=== PATIENT | male | born 1985 | race Caucasian/White ===

== ENCOUNTER 2019-08-22 09:51 | Inpatient (IN) ==
--- NOTE | 2019-08-06 13:05 | PAT Medication Instructions ---
Medication Instructions Date of Service August 06, 2019 Home Medications bupropion HCl [Wellbutrin SR] 100 mg PO BID clonazepam [Klonopin] 1 mg PO TID PRN dicyclomine 10 mg PO TID PRN methylphenidate HCl [Ritalin] 10 mg PO BID ondansetron HCl [Zofran] 4 mg PO DAILY PRN pantoprazole 40 mg PO BID DO NOT take the morning of surgery dicyclomine 10 mg PO TID PRN methylphenidate HCl [Ritalin] 10 mg PO BID Take morning of surgery With a small sip of water, OTHERWISE NOTHING TO EAT OR DRINK AFTER MIDNIGHT: bupropion HCl [Wellbutrin SR] 100 mg PO BID clonazepam [Klonopin] 1 mg PO TID PRN (if needed) ondansetron HCl [Zofran] 4 mg PO DAILY PRN (if needed) pantoprazole 40 mg PO BID Take evening before surgery bupropion HCl [Wellbutrin SR] 100 mg PO BID clonazepam [Klonopin] 1 mg PO TID PRN (if needed) dicyclomine 10 mg PO TID PRN (if needed) methylphenidate HCl [Ritalin] 10 mg PO BID ondansetron HCl [Zofran] 4 mg PO DAILY PRN (if needed) pantoprazole 40 mg PO BID Other Notes If you have any questions please call us at [phone] or [phone] or [phone] or [phone]
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
--- NOTE | 2019-08-12 12:33 | XRay Report ---
XR chest Pre-admission PA/Lat CLINICAL HISTORY: Preoperative evaluation. COMPARISON STUDY: No previous studies for comparison. FINDINGS: Lung volumes are normal. Lungs are clear. There is no pneumothorax or pleural effusion. Car diac size is normal. Mediastinal contours are normal. There is no evidence for pulmonary edema. Left upper quadrant surgical clips are incidentally noted. IMPRESSION: No acute cardiopulmonary findings. ACT 112: Negative or not required by law. Electronically signed by: Shon Uribe M.D. 08/12/2019 12:32 PM
[2019-08-12 12:58] LABS: Hematocrit (blood only) 48.9 % (42-52); Hemoglobin 16.3 g/dL (14.0-18.0); Mean Corpuscular Hgb Conc 33.3 g/dL (32-36); Mean Corpuscular Volume 95.9 fL (80-100); Platelet Count 357 K/uL (130-400); RDW Coefficient of Variation 14.2 % (11.5-14.5); RDW Standard Deviation 49.6 fL (36.4-46.3); White Blood Count 13.72 K/uL (4.8-10.8)
[2019-08-12 12:58] LABS: Appearance Urine Clear (Clear); Bilirubin Urine Negative (Negative); Blood Urine Negative (Negative); Color Urine Yellow; Glucose Urine UA Negative (Negative); Ketones Urine Negative (Negative); Leukocyte Esterase Urine Negative (Negative); Nitrite Urine Negative (Negative); Protein Urine Negative (Negative); Specific Gravity Urine 1.004 (1.000-1.030); Urobilinogen Urine Negative (Negative); pH Urine 6.5 (4.5-7.5)
[2019-08-12 13:08] LABS: Partial Thromboplastin Time 26.7 Seconds (21.0-31.0); Prothrombin Time 9.9 Seconds (9.0-12.0)
[2019-08-12 14:48] LABS: Basophils # (auto) 0.06 K/uL (0-0.2); Basophils % (auto) 0.4 %; Eosinophils % (auto) 2.9 %; Immature Granulocytes # (auto) 0.08 K/uL (0.00-0.02); Immature Granulocytes % (auto) 0.6 %; Lymphocytes # (auto) 5.01 K/uL (1.2-3.4); Lymphocytes % (auto) 36.5 %; Monocytes # (auto) 1.43 K/uL (0.11-0.59); Monocytes % (auto) 10.4 %; Neutrophils # (auto) 6.74 K/uL (1.4-6.5); Neutrophils % (auto) 49.2 %
[2019-08-12 15:48] LABS: BUN Creatinine Ratio 11.3 (10-20); Calcium 9.3 mg/dl (8.5-10.1); Creatinine Clr Calc Pharmacy 116.5 ml/min; Est GFR (Non-African American) 88.8; Potassium 3.7 mmol/L (3.5-5.1)
--- NOTE | 2019-08-13 17:38 | Electrocardiogram Report ---
Test Reason : Blood Pressure : / mmHG Vent. Rate : 062 BPM Atrial Rate : 062 BPM P-R Int : 138 ms QRS Dur : 094 ms QT Int : 390 ms P-R-T Axes : 064 053 055 degrees QTc Int : 395 ms Normal sinus rhythm Normal ECG No previous ECGs available Confirmed by Jose Cheek ([id number]) on 08/13/2019 5:38:26 PM Referred By: Lizandro Ch Confirmed By:Adi Cheek
[~2019-08-22 09:51] MED LIST: ACETAMINOPHEN 500 MG TAB PO SCH; CEFAZOLIN 2000MG 2,000 MG/15 ML SYR IV SCH; CeleBREX 200 MG CAP PO SCH; GABAPENTIN 900 MG DOSE PO SCH; LR 15ML/HR IV SCH
[2019-08-22] MEDS ORDERED: ePHEDrine sulfate 50 MG/ML AMP ONE (12:16)
[2019-08-22] MEDS ORDERED: GLYCOPYRROLATE 0.2 MG/ML VIAL ONE (12:16)
[2019-08-22] MEDS ORDERED: LIDOCAINE HCL 2% 2 ML VIAL/AMP(20MG/ML) INFIL ONE (12:16)
[2019-08-22] MEDS ORDERED: fentaNYL citrate 100 MCG/2 ML VIAL ONE ×3 (12:16→16:18)
[2019-08-22] MEDS ORDERED: ONDANSETRON INJ 2 MG/ML 2 ML VIAL ONE (12:16)
[2019-08-22] MEDS ORDERED: PHENYLEPHRINE HCL 10 MG/ML VIAL ONE (12:16)
[2019-08-22] MEDS ORDERED: SUCCINYLCHOLINE CHLORIDE 20 MG/ML 10 ML VIAL ONE (12:16)
[2019-08-22] MEDS ORDERED: NEOSTIGMINE METHYLSULFATE 1 MG/ML 10ML VIAL ONE (12:16)
[2019-08-22] MEDS ORDERED: PROPOFOL IV EMULSION 10 MG/ML 20 ML VIAL IV ONE (12:16)
[2019-08-22] MEDS ORDERED: DEXAMETHASONE SOD INJ 4 MG/ML VIAL ONE (12:16)
[2019-08-22] MEDS ORDERED: MIDAZOLAM HCL 1 MG/ML 2ML VIAL ONE (12:16)
--- NOTE | 2019-08-22 13:12 | History & Physical Bridge Note ---
Date of Service August 22, 2019 History & Physical Bridge Note I have examined the patient, reviewed the History & Physical and in the interval since the performance of the History & Physical I have noted the following changes of clinical significance: no changes noted
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
[2019-08-22] MEDS ORDERED: BUPIVACAINE/EPINEPHRINE 0.5% MPF 1:200,000 10 ML VIAL ONE (14:13)
[2019-08-22] MEDS ORDERED: BACITRACIN INJ 50,000 UNIT VIAL ONE (14:13)
[2019-08-22] MEDS ORDERED: HYDROmorphone INJ 2 MG/ML SYR/VIAL ONE (15:10)
[2019-08-22] MEDS ORDERED: FLOSEAL HEMOSTATIC MATRIX 10ML TOP ONE (15:20)
--- NOTE | 2019-08-22 15:59 | Operative Report ---
Post Operative Report Pre & Post Diagnosis Operation Date: 08/22/19 11:45 Pre-Op Diagnosis: Spinal stenosis of lumbar region with radiculopathy L4-S1 Post-Op Diagnosis: Spinal stenosis of lumbar region with radiculopathy L4-S1 I identified the patient and participated in the time-out.: Yes Procedure Operation Date: 08/22/19 11:45 Actual Procedures #1 lumbar decompression with bilateral medial facetectomies foraminotomies L4-5, L5-S1 per #2 posterior spinal fusion L4-5, L5-S1. #3 placement posterior instrumentation L4-5 L5-S1. #4 interbody fusion L5-S1. #5 placement titanium cage 12 x 26 mm at L5-S1. #6 placement of locally harvested morselized autograft in the posterior lateral gutters. #7 placement infuse collagen sponge, master graft in the posterior lateral gutters and ostial amp and interbody space. Surgeon Lizandro Ch DO Profiling Machine Setup Operator Samuel Whitney Estimated Blood Loss 100 Findings Consistent with Post-Op Diagnosis Specimens None Indications This is a 34-year-old male that presents above-mentioned diagnosis after failing extensive course of nonoperative care is here for surgical intervention. Description of Procedure Patient was met with identified informed consent obtained. Patient was then taken to the operative suite underwent an patient placed in a prone position on the John table on top of the Ari frame. All bony prominences well-padded eyes inspected to ensure no external pressure placed upon the. This point the lumbar spine was prepped and draped in a normal sterile fashion. Sharp dissection with the assistance of Bovie cautery performed down to and exposing the lamina transverse processes of L4-L5 and sacral ala bilaterally. From a caudal cephalad fashion complete laminectomy of L5 and L4 was performed including medial facetectomies and foraminotomies bilaterally. Pedicle screws were then placed in L4-L5 and S1 levels bilaterally with assistance of fluoroscopy and appropriate size balbina placed. By way of a trans-foramen approach and left the discectomy was performed endplates curetted to subcortical being bone and a 12 x 26 mm titanium cage filled with osteo-amp bone graft tapped in position. The rods were then compressed locked into final position bilaterally. The transverse processes of L for L5 and sacral ala burred to subcortical being bone. Infuse collagen sponge master graft local autograft placed in the posterior lateral gutters. 15 round FAMILIA drain inserted. Incision was then closed with 1 Vicryl in the fascia 2-0 Vicryl subcutaneously and 4 Monocryl for final skin closure. Steri-Strip sterile dressings placed. Patient will continue PACU stable initially please note Samuel record present throughout the entire procedure involved the patient positioning complex portions of the surgery and final skin closure. Lastly spinal cord monitoring was utilized that the procedure no changes noted. I attest to the content of the Intraoperative Record and any orders documented therein. Any exceptions are noted below.
[2019-08-22] MEDS ORDERED: ROCURONIUM BROMIDE 10 MG/ML 5 ML VIAL ONE (16:00)
--- NOTE | 2019-08-22 16:13 | Fluoroscopy Report ---
FL lumbar spine 2-3V CLINICAL HISTORY: 34 years-old Male presenting with L4-S1 DECOMPRESSION AND FUSION. TECHNIQUE: 2 fluoroscopic image(s) recorded as part of an intraoperative procedure. COMPARISON: None. FINDINGS/IMPRESSION: Bilateral transpedicular screw and balbina fixation of L4-S1 with interbody spacer at L5-S1. Laminectomy at L5. Normal anatomic alignment. Please see surgical report for further details. Fluoroscopy dosage (mGy): 23.03. Fluoroscopy time: 22.6 seconds. Number or time of high level fluoroscopy (HLF), digital spot, or digital subtraction images: 0. ACT 112: Negative or not required by law. Electronically signed by: Juan Morrell M.D. 08/22/2019 4:12 PM
[2019-08-22] MEDS ORDERED: ONDANSETRON INJ 2 MG/ML 2 ML VIAL IV PRN ×2 (16:47→17:23)
[2019-08-22] MEDS ORDERED: ATROPINE SULFATE 0.1 MG/ML 10ML SYR IV PRN (16:47)
[2019-08-22] MEDS ORDERED: HYDROmorphone INJ 2 MG/ML SYR/VIAL IV PRN (16:47)
[2019-08-22] MEDS ORDERED: fentaNYL citrate 100 MCG/2 ML VIAL IV PRN (16:47)
[2019-08-22] MEDS ORDERED: ePHEDrine sulfate 50 MG/ML AMP IV PRN (16:47)
--- NOTE | 2019-08-22 16:50 | Anesthesiology Progress Note ---
Date of Service August 22, 2019 Anesthesia Post Procedure Vital Signs Vital Signs: Temp Pulse Pulse Resp BP Pulse Ox 08/22/19 16:40 65 12 142/86 H 95 08/22/19 16:30 70 16 150/87 H 97 08/22/19 16:23 36.3 C L 66 18 142/92 H 97 08/22/19 10:18 36.9 C 78 18 142/79 H 94 Pain Intensity Bilateral Lower Back: Pain Intensity: 6 Transfer of Care Handoff Completed per policy Notes Mental Status: alert / awake / arousable and participated in evaluation Patient Amnestic to Procedure: Yes Nausea / Vomiting: adequately controlled Pain: adequately controlled Airway Patency, RR, SpO2: stable & adequate BP & HR: stable & adequate Hydration State: stable & adequate Anesthetic Complications: no major complications apparent and Pt Satisfied with anesthetic care
[2019-08-22] MEDS ORDERED: PROMETHAZINE HCL 12.5 MG in SODIUM CHLORIDE 0.9% 50 ML IV PRN (17:23)
[2019-08-22] MEDS ORDERED: ACETAMINOPHEN 500 MG TAB PO PRN (17:23)
[2019-08-22] MEDS ORDERED: ALUMINUM/MAGNESIUM SUSP 30 ML UDC PO PRN (17:23)
[2019-08-22] MEDS ORDERED: SOD PHOSPHATE/SOD BIPHOSPHATE ENEMA 132 ML BTL PR PRN (17:23)
[2019-08-22] MEDS ORDERED: ONDANSETRON 4 MG OD TAB PO PRN (17:23)
[2019-08-22] MEDS ORDERED: NON-FORMULARY MEDICATION (Ondansetron Hcl 4 MG) PO PRN (17:23)
[2019-08-22] MEDS ORDERED: bisacodyL 10 MG SUPP PR PRN (17:23)
[2019-08-22] MEDS ORDERED: HYDROmorphone INJ 0.5 MG/0.5 ML SYR IV PRN (17:23)
[2019-08-22] MEDS ORDERED: LORazepam 0.5 MG/1 ML VIAL IV PRN (17:23)
[2019-08-22] MEDS ORDERED: DO NOT ADMINISTER FLU VACCINE PRN (17:23)
[2019-08-22] MEDS ORDERED: METOCLOPRAMIDE HCL INJ 5 MG/ML 2 ML VIAL IV PRN (17:23)
[2019-08-22] MEDS ORDERED: ACETAMINOPHEN 1,000 MG/100 ML VIAL IV PRN (17:23)
[2019-08-22] MEDS ORDERED: MAGNESIUM HYDROXIDE SUSP 30 ML UDC PO PRN (17:23)
[2019-08-22] MEDS ORDERED: DICYCLOMINE HCL 10 MG CAP PO PRN (17:23)
[2019-08-22] MEDS ORDERED: LORazepam 0.5 MG TAB PO PRN (17:23)
[2019-08-22] MEDS ORDERED: FAMOTIDINE 20 MG TAB PO PRN (17:23)
[2019-08-22] MEDS ORDERED: DO NOT ADMINISTER PNEUMOCOCCAL VACCINE PRN (17:23)
[2019-08-22] MEDS ORDERED: NALOXONE HCL 0.4 MG/1 ML VIAL/CARP IV PRN (17:23)
[2019-08-22] MEDS: LACTATED RINGER'S 1,000 ML IV SCH ×2 (17:39→20:06)
[2019-08-22] MEDS: HYDROmorphone INJ 1 MG/ML SYRINGE IV PRN (17:44)
[2019-08-22] MEDS ORDERED: Nursing to Pharmacy Communication ONE (17:53)
[2019-08-22] MEDS: KETOROLAC 30 MG/ML VIAL IV SCH ×2 (18:03→23:58)
[2019-08-22] MEDS: OXYCODONE HCL IR 5 MG TAB (IMMEDIATE RELEASE) PO PRN (20:15)
[2019-08-22] MEDS: clonazePAM 1 MG TAB PO PRN (20:16)
[2019-08-22] MEDS: DOCUSATE SODIUM/SENNA 50/8.6MG TAB PO SCH (20:23)
[2019-08-22] MEDS: PANTOprazole 40 MG TAB PO SCH (20:23)
[2019-08-22] MEDS: METHYLPHENIDATE HCL 10 MG TABLET PO SCH (20:23)
[2019-08-22] MEDS: BuPROPion SR 100 MG TABCR PO SCH (20:23)
[2019-08-22] MEDS: CEFAZOLIN 2000MG 2,000 MG/15 ML SYR IV SCH (21:56)
[2019-08-23] MEDS: HYDROmorphone INJ 1 MG/ML SYRINGE IV PRN ×4 (03:18→21:16)
[2019-08-23] MEDS: CEFAZOLIN 2000MG 2,000 MG/15 ML SYR IV SCH (05:52)
[2019-08-23] MEDS: KETOROLAC 30 MG/ML VIAL IV SCH ×2 (05:52→12:23)
[2019-08-23] MEDS: POLYETHYLENE (MIRALAX) 17 GM PACK PO SCH ×3 (05:52→17:27)
[2019-08-23] MEDS: OXYCODONE HCL IR 5 MG TAB (IMMEDIATE RELEASE) PO PRN ×5 (05:55→18:49)
[2019-08-23 06:29] LABS: Hemoglobin 14.4 g/dL (14.0-18.0); Mean Corpuscular Hgb Conc 33.5 g/dL (32-36); Mean Corpuscular Volume 95.6 fL (80-100); Mean Platelet Volume 10.2 fL (7.4-10.4); Platelet Count 364 K/uL (130-400); RDW Coefficient of Variation 14.3 % (11.5-14.5); RDW Standard Deviation 49.7 fL (36.4-46.3)
[2019-08-23 07:02] LABS: Basophils # (auto) 0.05 K/uL (0-0.2); Basophils % (auto) 0.3 %; Eosinophils # (auto) 0.51 K/uL (0-0.5); Eosinophils % (auto) 3.1 %; Immature Granulocytes # (auto) 0.06 K/uL (0.00-0.02); Immature Granulocytes % (auto) 0.4 %; Lymphocytes # (auto) 5.26 K/uL (1.2-3.4); Lymphocytes % (auto) 32.5 %; Monocytes # (auto) 2.02 K/uL (0.11-0.59); Monocytes % (auto) 12.5 %; Neutrophils % (auto) 51.2 %
[2019-08-23 07:05] LABS: BUN Creatinine Ratio 9.4 (10-20); Calcium 8.6 mg/dl (8.5-10.1); Creatinine Clr Calc Pharmacy 111.9 ml/min; Est GFR (African American) 99.6; Est GFR (Non-African American) 85.9; Potassium 3.9 mmol/L (3.5-5.1)
[2019-08-23] MEDS: clonazePAM 1 MG TAB PO PRN ×2 (07:46→15:47)
[2019-08-23] MEDS: PANTOprazole 40 MG TAB PO SCH ×2 (08:41→20:52)
[2019-08-23] MEDS: METHYLPHENIDATE HCL 10 MG TABLET PO SCH ×2 (08:41→20:52)
[2019-08-23] MEDS: BuPROPion SR 100 MG TABCR PO SCH ×2 (08:42→20:52)
--- NOTE | 2019-08-23 08:59 | Orthopedic Progress Note ---
Date of Service August 23, 2019 Assessment & Plan (1) Spinal stenosis of lumbar region with radiculopathy: At this time initiate physical therapy advance his bowel regimen anticipate discharge home Sunday. Present on Admission?: Yes Subjective Back pain is controlled no leg pain Physical Exam Physical Exam: Patient is good strength testing appears comfortable. Results & Data ([facility]) Vital Signs (Past 12 Hours) Vital Signs Temp Pulse Pulse Resp BP Pulse Ox 08/23/19 07:03 36.4 C L 67 18 111/72 95 08/23/19 03:19 36.9 C 70 16 132/87 95 08/22/19 23:27 37.1 C 77 18 123/72 96
[2019-08-23] MEDS: TRAMADOL HCL 50 MG TABLET PO PRN (15:47)
--- NOTE | 2019-08-23 20:18 | Anesthesiology Progress Note ---
Date of Service August 23, 2019 Anesthesia Post Procedure Vital Signs Vital Signs: Temp Pulse Pulse Pulse Resp BP Pulse Ox 08/23/19 15:07 37.1 C 76 16 123/74 94 08/23/19 14:13 129/78 08/23/19 13:57 96 08/23/19 13:32 88 08/23/19 12:51 37.5 C 77 16 142/80 H 96 08/23/19 12:29 37.5 C 79 16 138/87 96 08/23/19 07:03 36.4 C L 67 18 111/72 95 08/23/19 03:19 36.9 C 70 16 132/87 95 08/22/19 23:27 37.1 C 77 18 123/72 96 Pain Intensity Bilateral Lower Back: Pain Intensity: 6 Notes Mental Status: see notes below Patient Amnestic to Procedure: Yes Nausea / Vomiting: adequately controlled Pain: adequately controlled Airway Patency, RR, SpO2: stable & adequate BP & HR: stable & adequate Hydration State: stable & adequate Anesthetic Complications: no major complications apparent Notes: Patient sleeping comfortably
[2019-08-23] MEDS: DOCUSATE SODIUM/SENNA 50/8.6MG TAB PO SCH (20:52)
[2019-08-24] MEDS: POLYETHYLENE (MIRALAX) 17 GM PACK PO SCH ×4 (00:08→17:42)
[2019-08-24] MEDS: OXYCODONE HCL IR 5 MG TAB (IMMEDIATE RELEASE) PO PRN ×6 (00:09→22:33)
[2019-08-24] MEDS: PANTOprazole 40 MG TAB PO SCH ×2 (08:28→20:52)
[2019-08-24] MEDS: BuPROPion SR 100 MG TABCR PO SCH ×2 (08:28→20:52)
[2019-08-24] MEDS: METHYLPHENIDATE HCL 10 MG TABLET PO SCH ×2 (08:33→20:52)
--- NOTE | 2019-08-24 08:54 | Orthopedic Progress Note ---
Date of Service August 24, 2019 Assessment & Plan (1) Spinal stenosis of lumbar region with radiculopathy: At this point will continue with GI DVT prophylaxis. Patient was encouraged to continue to work with physical therapy to become more independent. We will continue with pain control measures. Her hopes that he can be discharged home tomorrow. Subjective Patient seen bedside postop day #2. He complains of numbness and tingling in both of his legs when he tries to stand and walk. He states his legs feel weak. He states he cannot lay on his back due to pain. He denies any other numbness, tingling, or paresthesias. Physical Exam Physical Exam: On exam the patient was soundly sleeping upon entering the room. He was easily arousable. His abdomen soft nontender his calves are supple nontender strength and sensation both intact his dressing is clean dry and intact. His FAMILIA drains is in place and holding suction. Results & Data ([facility]) Vital Signs (Past 12 Hours) Vital Signs Temp Pulse Resp BP BP Pulse Ox 08/24/19 07:05 37.7 C H 83 18 113/73 95 08/24/19 00:09 37.2 C 89 16 113/66 94
[2019-08-24] MEDS: clonazePAM 1 MG TAB PO PRN ×2 (10:17→20:52)
[2019-08-24] MEDS: TRAMADOL HCL 50 MG TABLET PO PRN (20:51)
[2019-08-24] MEDS: DOCUSATE SODIUM/SENNA 50/8.6MG TAB PO SCH (20:52)
[2019-08-25] MEDS: POLYETHYLENE (MIRALAX) 17 GM PACK PO SCH ×3 (00:13→12:11)
[2019-08-25] MEDS: HYDROmorphone INJ 1 MG/ML SYRINGE IV PRN ×3 (00:16→19:11)
[2019-08-25] MEDS: OXYCODONE HCL IR 5 MG TAB (IMMEDIATE RELEASE) PO PRN ×3 (02:46→15:37)
[2019-08-25] MEDS: PANTOprazole 40 MG TAB PO SCH (08:44)
[2019-08-25] MEDS: BuPROPion SR 100 MG TABCR PO SCH (08:45)
[2019-08-25] MEDS: METHYLPHENIDATE HCL 10 MG TABLET PO SCH (08:50)
[2019-08-25] MEDS: clonazePAM 1 MG TAB PO PRN (08:50)
[2019-08-25] MEDS: TRAMADOL HCL 50 MG TABLET PO PRN (10:15)
--- NOTE | 2019-08-25 16:21 | Discharge Summary ---
Date of Service August 25, 2019 Admission HPI Per Admitting Provider This is a 34-year-old male who presents with chronic persistent back and leg pain. After failing extensive course of nonoperative care he is here for surgical intervention. Principal Diagnosis Lumbar spinal stenosis with neurogenic claudication Discharge Data Allergies Allergy/AdvReac Type Severity Reaction Status Date / Time No Known Allergies Allergy Verified 08/22/19 10:15 Consultations 08/22/19 17:23 Consult Case Management - Discharge Planning Routine Procedures Performed Operation Date: 08/22/19 11:45 Actual Procedures p L4-S1 Decompression and Fusion, Interbody Fusion L5-S1, Bone Morphogenetic Protein with Spinal Cord Monitoring(Not Applicable) - Lizandro Ch DO Ordered Studies 08/22/19 11:45 FL fluoroscopy <1hr Routine FL lumbar spine 2-3V Routine Hospital Course (1) Spinal stenosis of lumbar region with radiculopathy: Patient underwent multilevel lumbar decompression fusion tolerated this well was taken to orthopedic floor postoperatively. Postop day 1 he was up and ambulating progressed to postop day #2 postop day #3 his symptoms improved FAMILIA drain decreased appropriately and subsequently discharged home discharge orders instructions from the chart for further view. Total Time Total Time Spent Total Time Spent (In Minutes): 20 minutes Discharge Plan Discharge Items Patient Disposition: Home - Self-Care Reason For Visit: LUMBAR SPINAL STENOSIS W/NEUROGENIC CLAUDICATION Discharge Diagnosis: Lumbar spinal stenosis with radiculopathy Activity: As commented below Non-emergency contact: Primary Care Provider Call non-emergency contact if: you have any medication questions Follow-up/Referrals: Alessia Duvall DO [Primary Care Provider] - Diet: Regular Addtl Attending Provider Instructions: ACTIVITY RECOMMENDATIONS: SELF CARE INSTRUCTIONS AFTER THORACIC/LUMBAR FUSIONS 1. You may walk to your tolerance. It is good exercise for your legs and back. Expect some back and intermittent leg aches and pains. 2. You may perform "counter-top" level activities (make a sandwich, martha with a project, etc.). 3. No bending or lifting of more than 10 pounds or back twisting of any nature (roll like a log when turning in bed). 4. You may ride in a car for 20-30 minutes at a time. No driving until after your first visit with your doctor. 5. Frequent changes of position and restricting sitting to 30 minutes at a time will help limit the amount of back spasms and stiffness you may experience. 6. You may discontinue the use of ambulatory aids (cane, crutches, etc.) once your strength and confidence allow. 7. You may interlocking installer the shower and let water strike your incision when you arrive home at least once daily. Do not take a tub bath, sit in a hot tub or go into a swimming pool until after your first recheck in the office. SPECIAL CARE INSTRUCTIONS: VERY IMPORTANT TO READ AND REVIEW A. Your surgical incision has been closed with a cosmetic suture under the skin that will dissolve in about 6 weeks. In 14 days, you can use a pair of clean scissors and cut the suture that is left outside of the skin at the ends of your incision. 1. The small skin tapes can be removed 7 days after surgery if they have not fallen off by that point. 2. You may keep the wound open to air as much as possible to promote healing after post-op day number 5 unless told otherwise by your doctor. 3. If you think the wound looks like it is becoming infected (redness or worsening drainage) and/or you are experiencing fever, chill or worsening back pain and muscle spasms, contact the office so that we may evaluate you as soon as possible. B. Complications are uncommon, but please contact us if you have any signs or symptoms of: 1. wound infection (fever higher than 102.5 degrees F, redness, separation of wound, drainage, or increasing pain from the incision) 2. blood clots in legs (pain, swelling, redness and warmth in legs) 3. urinary tract infection (fever higher than 102.5 degrees F, burning upon urination or increased frequency of urination) 4. nerve problems (inability to walk on your toes or heels, numbness, loss of bowel or bladder control) 5. any other symptoms that concern you C. Please call the office at if you have any concerns or questions about your operation or recovery. D. No smoking! Smoking drastically decreases the chance of a solid fusion. E. Do not take any anti-inflammatory medications (Indocin, Advil, Motrin, Aspirin, Naprosyn, etc.) as these may inhibit the chance of a solid fusion. Tylenol is okay to take for pain. MANAGING PAIN AFTER SPINAL SURGERY 1. Narcotic medication is intended for short-term use and will be provided for surgical pain. Surgical pain usually lasts for a period of 4-6 weeks. Narcotic medication includes Percocet, Vicodin, Darvocet, Tylenol #3 or Lortab. 2. Longer-term pain is more appropriately treated with non-narcotic medication such as Tylenol ES. 3. Muscle spasm is not appropriately treated with narcotics. Muscle relaxers such as Soma, Flexeril or Skelaxin can be used along with Tylenol ES. 4. Remember that we all live with some "aches and pains". This is not unusual or uncommon after an injury or as we get older. a. Back pain is expected and may include muscle spasms for 4 to 6 weeks after surgery. The pain should gradually improve. If the pain worsens for no apparent reason, please contact the office. b. Intermittent leg pain may also be experienced and should not be concerned about unless it worsens for no apparent reason. If so, please contact the office. 5. We will provide appropriate medication within the normal guidelines of their prescribed use. We will also be very cautious and aware of potential abuse and extended duration of patients' medication needs. a. Pain medications are for your comfort and to assist with sleep and rest so that the tissue can heal. They are not provided in order to return to normal activity and should not be used through the day. To do so or worsening pain at night can result from ongoing tissue damage and development of tolerance to the prescribed medicine. 6. Please allow 2-3 days to process refills. Prescriptions will not be mailed but must be picked up at the office. FOLLOW UP VISIT: Keep your scheduled follow-up appointment. Any questions, please call the office at . Pending Studies at Discharge: No Stand-Alone Forms: [employer], Smoking Cessation Medications and DC Order Prescriptions: New tramadol 50 mg tablet 50 mg PO Q6H PRN (Reason: pain, moderate) Qty: 30 RF: 0 oxycodone 5 mg tablet 5 mg PO Q6H PRN (Reason: pain, severe) Qty: 30 RF: 0 Continued methylphenidate HCl [Ritalin] 10 mg Tablet 10 mg PO BID RF: 0 ondansetron HCl [Zofran] 4 mg Tablet 4 mg PO DAILY PRN (Reason: Nausea) RF: 0 clonazepam [Klonopin] 1 mg Tablet 1 mg PO TID PRN (Reason: Anxiety) RF: 0 bupropion HCl [Wellbutrin SR] 100 mg Tablet Sustained-Release 12 Hr 100 mg PO BID RF: 0 pantoprazole 40 mg Tablet,Delayed Release (Dr/Ec) 40 mg PO BID RF: 0 dicyclomine 10 mg Capsule 10 mg PO TID PRN (Reason: ibs) RF: 0 Discharge Orders: Discharge Order (Routine); Ordered 08/25/19 Ordered By: Lizandro Ch Admission Data Admit Date/Time: 08/22/19 16:37 Attending Provider: Lizandro Ch Admit Provider: Lizandro Ch Primary Care Provider: Alessia Duvall
== END 2019-08-25 20:07 | disposition home or self-care (01) | DRG 455 ==
LOC: ASU 09:51 → 3E 16:37